=== PATIENT | male | born 1940 | race Caucasian/White ===

== ENCOUNTER 2016-08-13 22:10 | Emergency (ER) | payer MEDICARE, BC ==
--- NOTE | ~2016-08-13 | CR72 ---
[facility]. [facility] A Service of [facility] RADIOLOGY TEXT RESULTS PATIENT: VINNY MOY LOCATION: SED : 39 UNIT #: [id number] AGE: [address]: Eulalio Pino MD SEX: M ORDER DR: [id number] [place] [id number] E MR#: [id number] Acc #: [id number] NAME: VINNY MOY : 1940 SEX: M STUDY DATE/TIME: 08/13/2016 21:53 UNIT: SED ROOM: STUDY DESCRIPTION: CR Chest Single View Portable Attending Physician: Eulalio Pino M.D. Ordering Physician: Eulalio Pino M.D. Primary Care Physician: No Primary Care Physician MEDICAL IMAGING REPORT This report is preliminary unless electronic signature is present. EXAM Portable chest HISTORY Chest pain onset today. COMPARISON 10/23/2010 FINDINGS Portable view of the chest demonstrates low lung volumes. No infiltrates or effusions. Heart, mediastinum unremarkable. Patient is post mediastinotomy. No effusions. No pneumothorax. Dictated by... Manfred Haynes M.D. THIS IS AN ELECTRONICALLY VERIFIED REPORT Manfred Haynes M.D. at 08/14/2016 11:00 PM Maci TD: 08/14/2016 00:48 JOB #: [id number] MEDICAL IMAGING REPORT Page 1 of 1
--- NOTE | ~2016-08-13 | EKG ---
PATIENT: VINNY MOY UNIT #: [id number] Ventricular Rate: 58 BPM Atrial Rate: 58 BPM P-R Interval: 226 ms QRS Duration: 84 ms Q-T Interval: 406 ms QTC Calculation(Bezet): 398 ms P [place]: 18 degrees Calculated R [place]: 73 degrees Calculated T [place]: 114 degrees Diagnosis Line: Sinus bradycardia with 1st degree A-V block Diagnosis Line: Nonspecific T wave abnormality Diagnosis Line: Abnormal ECG Diagnosis Line: When compared with ECG of 14-DEC-2009 06:06, Diagnosis Line: IN interval has increased Diagnosis Line: Confirmed by HUMBLE HERNANDEZ MD ([id number]) on 08/15/2016 Diagnosis Line: 8:03:59 PM INTERPRETING MD: MARY BENDER
[2016-08-13 22:10] LABS: EOSINOPHIL# 0.2 X10e3 (0-0.7); EOSINOPHIL% 5.4 % (0.0-7.0); HEMOGLOBIN 9.8 gm/dL (13.0-16.0); LYMPHOCYTE# 1.4 X10e3 (1.0-3.5); LYMPHOCYTE% 40.1 % (17.0-45.0); MEAN CELL VOLUME 93.3 FL (83-96); MEAN CORPUSCULAR HEMOGLOBIN 31.4 PG (28-34); MEAN CORPUSCULAR HGB CONC 33.7 g/dL (30-36); MEAN PLATELET VOLUME 7.8 FL (6.5-11.5); MONOCYTE# 0.4 X10e3 (0-1.0); MONOCYTE% 10.7 % (3.0-12.0); NEUTROPHIL# 1.5 X10e3 (1.5-7.1); NEUTROPHIL% 42.8 % (40-75); PLATELET COUNT 149 X10e3 (140-420); RED CELL DISTRIBUTION WIDTH 14.7 % (11.0-15.5); WHITE BLOOD COUNT 3.6 X10e3 (4.0-10.5)
[~2016-08-13 22:10] MED LIST: ASPIRIN PO; ASPIRIN81 MG PO; CALTRATE 600+D PO; CRESTOR PO; DONEPEZIL HCL10 MG PO; ELIGARD; FERROUS GLUCON325 M1 PO; HCTZ PO; HYDROCHLOROTH12.5 MG; IRON PO; KEFLEX500 MG PO; LISINOPRIL10 MG PO; LISINOPRIL5 MG; LOSARTAN; LOSARTAN POTASS25 MG PO; LUPRON; LUPRON DEPOT11.25 MG; LUPRON DEPOT7.5 MG IM; MULTI-DAY VITAM1 TAB PO; MULTI-VITAMIN1 TAB PO; NAMZARIC 21 MG1 EACH PO; NIASPAN PO; NIASPAN750 MG PO; TRELSTAR22.5 MG/2 IM; VICODIN PO; VITAMIN B125000 MCG; [UNRECOGNIZED DRUG - OTHER]
[2016-08-13 22:12] LABS: POC - CKMB <1.0 ng/mL (0.0-7.9); POC - TROPONIN <0.05 ng/mL (<=0.05)
[2016-08-13 22:17] LABS: DIFF IND NO
[2016-08-13 22:18] LABS: PROTHROMBIN TIME (PATIENT) 10.9 SECONDS (9.5-12.4)
[2016-08-13 22:25] LABS: PARTIAL THROMBOPLASTIN TIME 26.1 SECONDS (25.6-38.1)
[2016-08-13 22:27] LABS: ALBUMIN SERUM 3.7 g/dL (3.5-5.0); BILIRUBIN, DIRECT 0.1 mg/dL (0.0-0.2); BILIRUBIN,TOTAL 0.1 mg/dL (0.2-2.0); BUN/CREATININE RATIO 18.18; CALCIUM SERUM 8.9 mg/dL (8.4-10.2); CREATININE SERUM 1.1 mg/dL (0.6-1.4); GLOM FILT RATE Estimated 64.4 mL/min (>60); PROTEIN TOTAL SERUM 6.5 g/dL (6.0-8.3)
[2016-09-21] MEDS ORDERED: NAMZARIC 28 MG1 EACH PO (14:16)
[2016-09-21] MEDS ORDERED: CLOPIDOGREL75 MG PO (14:17)
[2016-09-21] MEDS ORDERED: IMODIUM A-D2 M2 PO (14:20)
[2016-09-21] MEDS ORDERED: COZAAR100 MG PO (14:21)
[2016-09-21] MEDS ORDERED: ELIGARD22.5 MG SUBQ (14:22)
[2016-09-21] MEDS ORDERED: NIACIN750 MG PO (16:56)
[2016-09-21] MEDS ORDERED: PRAVACHOL20 MG PO (16:57)
[2016-09-21] MEDS ORDERED: ASPIRIN81 M2 PO (16:58)
[2016-09-21] MEDS ORDERED: CALTRATE 600+D PO (16:59)
[2016-09-21] MEDS ORDERED: CENTRUM PO (16:59)
[2016-09-21] MEDS ORDERED: VITAMIN D31000 UNI1 PO (16:59)
[2016-09-21] MEDS ORDERED: BENIFIBER PO (21:57)
== END 2016-08-14 01:14 ==
LOC: SED 22:10
PROVIDERS: Emergency Medicine
DX: R07.9 Chest pain, unspecified (principal); I25.10 Atherosclerotic heart disease of native coronary artery without angina pectoris; E78.5 Hyperlipidemia, unspecified; I10 Essential (primary) hypertension; Z79.82 Long term (current) use of aspirin; Z79.899 Other long term (current) drug therapy
CPT/HCPCS: 36415; 71010; 80048; 80076; 82553; 84484; 85025; 85610; 85730; 93005; 99285

== ENCOUNTER → 2016-09-21 | Outpatient (CLI) | payer MEDICARE, BC ==
[~2016-09-21] MED LIST changes: +ASPIRIN81 M2 PO; +BENIFIBER PO; +CENTRUM PO; +CLOPIDOGREL75 MG PO; +COZAAR100 MG PO; +ELIGARD22.5 MG SUBQ; +IMODIUM A-D2 M2 PO; +NAMZARIC 28 MG1 EACH PO; +NIACIN750 MG PO; +NITROGLYGERIN0.4 MG SL; +PRAVACHOL20 MG PO; +VITAMIN D31000 UNI1 PO
--- NOTE | ~2016-09-21 | CT134 ---
[facility] A Service of [facility] RADIOLOGY TEXT RESULTS PATIENT: VINNY MOY LOCATION: CIVR : 39 UNIT #: [id number] AGE: [address]: Forrest Mueller MD SEX: M ORDER DR: [id number] [facility] [address] [facility]. [place], [place] [address] [id number] O MR#: [id number] Acc #: [id number] NAME: VINNY MOY. : 1940 SEX: M STUDY DATE/TIME: 09/21/2016 12:45 UNIT: CIVR ROOM: STUDY DESCRIPTION: CT Guide Attending Physician: Forrest Mueller M.D. Ordering Physician: Forrest Mueller M.D. Primary Care Physician: Rajendra Mcfadden M.D. MEDICAL IMAGING REPORT This report is preliminary unless electronic signature is present EXAM CT-guided bone marrow biopsy INDICATION Iron-deficiency anemia. TECHNIQUE This CT examination was performed with one or more of the following radiation dose reduction techniques: automatic exposure control, adjustment of mA and/or kV according to patient size, and iterative reconstruction. PROCEDURE Risks, benefits, and alternatives to the procedure were explained to the patient and signed, informed consent was placed. He was placed prone on the CT scanner gantry. Preliminary CT scan was performed through the region of interest and an appropriate site overlying the patient's left iliac bone was selected. Overlying skin was marked. Patient was prepped and draped in the usual sterile fashion. Time-out was performed as per protocol. Skin and subcutaneous tissues were anesthetized with buffered lidocaine. I subsequently exchanged for a bone marrow biopsy needle which was advanced into the left iliac bone. Repeat CT scan confirmed appropriate position of the needle, which was then advanced into the bone marrow. Bone marrow aspirate was obtained. Needle was advanced further and then retracted which appeared to yield an adequate core sample. Manual pressure was then applied until hemostasis was obtained. Patient tolerated the procedure well and there were no immediate complications. He did receive conscious sedation consisting of 1 mg Versed and 50 mcg of Fentanyl and continuous monitoring was provided by the IVR nurse for a total of 45 minutes. IMPRESSION Technically successful CT-guided bone marrow biopsy as noted above. CT STS. [facility] A Service of [facility] RADIOLOGY TEXT RESULTS PATIENT: VINNY MOY LOCATION: [facility] : 39 UNIT #: [id number] AGE: [address]: Forrest Mueller MD SEX: M ORDER DR: was used during the procedure and permanent images were saved. Dictated by... Joann Nayak M.D. THIS IS AN ELECTRONICALLY VERIFIED REPORT Joann Nayak M.D. at 09/24/2016 4:48 PM KWAME/roseanna TD: 09/24/2016 08:48 JOB #: [id number] MEDICAL IMAGING REPORT Page 1 of 1 COPY
[2016-09-21 09:52] LABS: HEMATOCRIT 24.9 % (38.0-50.0); HEMOGLOBIN 8.3 gm/dL (13.0-16.0); MEAN CELL VOLUME 95.7 FL (83-96); MEAN CORPUSCULAR HGB CONC 33.4 g/dL (30-36); MEAN PLATELET VOLUME 6.8 FL (6.5-11.5); RED BLOOD COUNT 2.6 X10e (3.90-5.60); RED CELL DISTRIBUTION WIDTH 15.7 % (11.0-15.5); WHITE BLOOD COUNT 4.3 X10e3 (4.0-10.5)
[2016-09-21 10:07] LABS: PARTIAL THROMBOPLASTIN TIME 24.6 SECONDS (23.5-31.3); PROTHROMBIN TIME (PATIENT) 10.7 SECONDS (9.6-11.5)
== END | disposition home or self-care (01) ==
LOC: CIVR 09:09 → CCAT 11:00
PROVIDERS: Internal Medicine Medical Oncology
DX: D50.9 Iron deficiency anemia, unspecified (principal); K90.9 Intestinal malabsorption, unspecified; C61 Malignant neoplasm of prostate; I35.0 Nonrheumatic aortic (valve) stenosis; I10 Essential (primary) hypertension; I25.10 Atherosclerotic heart disease of native coronary artery without angina pectoris; Z95.1 Presence of aortocoronary bypass graft; Z95.5 Presence of coronary angioplasty implant and graft; E78.5 Hyperlipidemia, unspecified; E66.9 Obesity, unspecified
CPT/HCPCS: 38221; G0364; 36415; 77012; 85027; 85610; 85730; 88305; 88311; 93005; 99144; 99152; 99153; J2250; J3010

== ENCOUNTER 2016-12-19 20:21 | Emergency (ER) | payer MEDICARE, BC ==
[~2016-12-19] VITALS: Ht 175.3 cm; Wt 88.5 kg
--- NOTE | ~2016-12-19 | CT71 ---
[facility] A Service of [facility] RADIOLOGY TEXT RESULTS PATIENT: VINNY MOY LOCATION: SED : 39 UNIT #: [id number] AGE: [address]: Eulalio Pino MD SEX: M ORDER DR: [id number] [place] [id number] E MR#: [id number] Acc #: [id number] NAME: VINNY MOY : 1940 SEX: M STUDY DATE/TIME: 12/19/2016 21:00 UNIT: SED ROOM: STUDY DESCRIPTION: CT Head Wo Contrast Attending Physician: Eulalio Pino M.D. Ordering Physician: Eulalio Pino M.D. Primary Care Physician: Rajendra Mcfadden M.D. MEDICAL IMAGING REPORT This report is preliminary unless electronic signature is present. EXAM CT brain without contrast HISTORY Fell and hit face and head today. Headache. Face pain. This CT exam was performed with one or more of the following radiation dose reduction techniques: automatic exposure control, adjustment of mA and/or kV according to patient size, and iterative reconstruction. FINDINGS CT brain without contrast demonstrates moderate chronic ischemic changes of deep white matter bilaterally. Moderate generalized cerebral cortical atrophy and corresponding generalized ventricular dilatation. No intracranial hemorrhage, mass or edema. No midline shift or focal atrophy. Small anterior midline frontal scalp contusion. IMPRESSION 1. No acute intracranial findings. 2. Small anterior midline frontal scalp contusion. 3. Generalized cerebral cortical atrophy and moderate chronic ischemic changes in the deep white matter bilaterally. Dictated by... Taz Bush M.D. THIS IS AN ELECTRONICALLY VERIFIED REPORT Taz Bush M.D. at 12/20/2016 11:26 PM DFRui/rosario [facility] A Service of [facility] RADIOLOGY TEXT RESULTS PATIENT: VINNY MOY LOCATION: SED : 39 UNIT #: [id number] AGE: [address]: Eulalio Pino MD SEX: M ORDER DR: TD: 12/20/2016 04:18 JOB #: [id number] MEDICAL IMAGING REPORT Page 1 of 1
--- NOTE | ~2016-12-19 | CT52 ---
[facility] A Service of [facility] RADIOLOGY TEXT RESULTS PATIENT: VINNY MOY LOCATION: SED : 39 UNIT #: [id number] AGE: [address]: Eulalio Pino MD SEX: M ORDER DR: [id number] [place] [id number] E MR#: [id number] Acc #: [id number] NAME: VINNY MOY. : 1940 SEX: M STUDY DATE/TIME: 12/19/2016 21:11 UNIT: SED ROOM: STUDY DESCRIPTION: CT Cervical Spine Wo Cont Attending Physician: Eulalio Pino M.D. Ordering Physician: Eulalio Pino M.D. Primary Care Physician: Rajendra Mcfadden M.D. MEDICAL IMAGING REPORT This report is preliminary unless electronic signature is present. EXAM Cervical spine CT, 12/19/2016 at 2111 hours INDICATIONS Patient fell tonight on concrete. Posterior neck pain since that fall. Fall approximately 07:10 p.m. TECHNIQUE Axial images were obtained through the cervical spine without contrast. Multiplanar reformats were obtained. No comparison. This CT exam was performed with one or more of the following radiation dose reduction techniques: automatic exposure control, adjustment of mA and/or kV according to patient size, and iterative reconstruction. FINDINGS Note is made of emphysema in the apices. Alignment is normal. There is multilevel degenerative disc disease with broad-based disc osteophyte complex present. Additionally, there is multilevel facet arthropathy. Note is also made of atherosclerotic disease. IMPRESSION Multilevel degenerative disease. No acute fracture or malalignment. Dictated by... Anthony Shipley Jr., M.D. THIS IS AN ELECTRONICALLY VERIFIED REPORT Anthony Shipley Jr., M.D. at 12/20/2016 6:03 AM LEXXK/rosario [facility] A Service of [facility] RADIOLOGY TEXT RESULTS PATIENT: VINNY MYO LOCATION: SED : 39 UNIT #: [id number] AGE: [address]: Eulalio Pino MD SEX: M ORDER DR: TD: 12/20/2016 04:41 JOB #: [id number] MEDICAL IMAGING REPORT Page 1 of 1
--- NOTE | ~2016-12-19 | CT101 ---
[facility] A Service of [facility] RADIOLOGY TEXT RESULTS PATIENT: VINNY MOY LOCATION: SED : 39 UNIT #: [id number] AGE: [address]: Eulalio Pino MD SEX: M ORDER DR: [id number] [place] [id number] E MR#: [id number] Acc #: [id number] NAME: VINNY MOY : 1940 SEX: M STUDY DATE/TIME: 12/19/2016 21:06 UNIT: SED ROOM: STUDY DESCRIPTION: CT Maxillofacial Area Wo Cont Attending Physician: Eulalio Pino M.D. Ordering Physician: Eulalio Pino M.D. Primary Care Physician: Rajendra Mcfadden M.D. MEDICAL IMAGING REPORT This report is preliminary unless electronic signature is present. EXAM CT facial bones without contrast HISTORY Fell and hit face today. Face pain. This CT exam was performed with one or more of the following radiation dose reduction techniques: automatic exposure control, adjustment of mA and/or kV according to patient size, and iterative reconstruction. FINDINGS CT facial bones without contrast demonstrates small anterior midline frontal scalp contusion, partly included on this exam. No fracture. No paranasal sinus opacification or air-fluid level. Moderate nasal septal deviation to the left. Incidental small tonny bullosa in the middle turbinates. IMPRESSION 1. No fracture. 2. Partly visualized anterior midline frontal scalp contusion. 3. Mild nasal septal deviation to the left. Dictated by... Taz Bush M.D. THIS IS AN ELECTRONICALLY VERIFIED REPORT Taz Bush M.D. at 12/20/2016 11:26 PM DFL/rosario [facility] A Service [facility] RADIOLOGY TEXT RESULTS PATIENT: VINNY MOY LOCATION: SED : 39 UNIT #: [id number] AGE: [address]: Eulalio Pino MD SEX: M ORDER DR: TD: 12/20/2016 04:21 JOB #: [id number] MEDICAL IMAGING REPORT Page 1 of 1
[~2016-12-19 20:21] MED LIST changes: -NITROGLYGERIN0.4 MG SL
[2016-12-19] MEDS ORDERED: NITROGLYGERIN0.4 MG SL (20:31)
== END 2016-12-19 22:43 | disposition home or self-care (01) ==
LOC: SED 20:21
DX: S16.1XXA Strain of muscle, fascia and tendon at neck level, initial encounter (principal); S00.83XA Contusion of other part of head, initial encounter; Z79.899 Other long term (current) drug therapy; W18.09XA Striking against other object with subsequent fall, initial encounter
CPT/HCPCS: 70450; 70486; 72125; 99283